=== PATIENT | male | born 1985 | race African-American/Black ===

== ENCOUNTER 2021-12-10 11:21 | Outpatient (CLI) | payer SELFPAY | END 2021-12-10 11:22 | disposition home or self-care (01) | LOC: AMB 12-27 14:24 | PROVIDERS: Visit Provider Family Medicine | DX: S91.311A Laceration without foreign body, right foot, initial encounter (principal); W25.XXXD Contact with sharp glass, subsequent encounter | CPT/HCPCS: A0425; A0429 ==

== ENCOUNTER 2021-12-10 11:55 | Emergency (ER) | payer SELFPAY ==
[2021-12-10 12:08] VITALS: BP 135/73; PULSE 83; RESP 16; TEMP 36.6; O2SAT 96; BMI 26.3
== END 2021-12-10 19:35 | disposition left against medical advice (07) ==
DX: Z53.21 Procedure and treatment not carried out due to patient leaving prior to being seen by health care provider (principal)